=== PATIENT | female | born 1970 | race Caucasian/White ===

== ENCOUNTER → 2017-11-29 09:45 | Outpatient (CLI) | payer BC, SELFPAY ==
--- NOTE | 2017-11-29 09:54 | XR_ITS ---
XR hip LT 2-3V w/pelvis HISTORY: ITS.REASON: LOW BACK, LT HIP AND LT KNEE PAIN ORDERING PHYSICIAN: Arie Raya MD PATIENT AGE: 47 years COMPARISON: 10/16/2012 FINDINGS: No fracture or dislocation is evident. No significant degenerative change. No lytic or blastic change. Unremarkable soft tissues. Mild hypertrophic changes have developed along the greater trochanter on both sides slightly more extensive on the left of questionable clinical significance. IMPRESSION: 1. No acute finding. 2. Mild bony hypertrophic changes along the greater trochanters
--- NOTE | 2017-11-29 09:54 | XR_ITS ---
EXAM: XR lumbar spine min 4V HISTORY: ITS.REASON: LOW BACK, LT HIP AND LT KNEE PAIN ORDERING PHYSICIAN: Arie Raya MD PATIENT AGE: 47 years COMPARISON: None FINDINGS: Normal alignment. No fracture or dislocation. No lytic or blastic change. No significant degenerative change. The disc spaces are preserved. IMPRESSION: Negative lumbar spine
--- NOTE | 2017-11-29 09:54 | XR_ITS ---
XR knee LT 3V HISTORY: Left knee pain ITS.REASON: LOW BACK, LT HIP AND LT KNEE PAIN ORDERING PHYSICIAN: Arie Raya MD PATIENT AGE: 47 years COMPARISON: None FINDINGS: 3 views are obtained including AP, lateral, and sunrise view. No fracture or dislocation. No lytic or blastic change. Normal mineralization. There is mild patella although. No significant arthritic changes evident. No other significant findings IMPRESSION: Mild patella saray otherwise negative left knee
== END ==
PROVIDERS: PCP Family Medicine; Visit Provider Pain Medicine Interventional Pain Medicine
DX: M54.5 Low back pain (principal); M25.552 Pain in left hip; M25.562 Pain in left knee
CPT/HCPCS: 72110; 73502; 73562

== ENCOUNTER → 2020-12-21 15:06 | Outpatient (POV) | payer BC, SELFPAY | PROVIDERS: Visit Provider Dermatology | DX: Z00.00 Encounter for general adult medical examination without abnormal findings (principal) ==

== ENCOUNTER 2021-05-13 12:55 | Emergency (ER) | payer BC, SELFPAY ==
[2021-05-13 13:06] VITALS: BP 126/69; PULSE 93; RESP 18; TEMP 36.7; O2SAT 95; BMI 38.4
--- NOTE | 2021-05-13 13:36 | HMH.EDUTC ---
[facility] – [place] Disposition Clinical Impression: Bug bite Qualifiers: Encounter type: initial encounter Qualified Code(s): W57.XXXA - Bitten or stung by nonvenomous insect and other nonvenomous arthropods, initial encounter Disposition: Home, Self-Care Condition on Discharge: Good Instructions: How to Care for an Insect Bite or Sting, Insect Bites and Stings, DI for Insect Bites and Stings Additional Instructions: Use topical Steriod cream on area as prescribed Watch area for worsening of redness and swelling Return if needed Straight to ER if any life threatening symptoms Benadryl may help with itching Referrals: Wilmar Raya MD [Primary Care Provider] - As needed Time of Disposition: 14:09 Medical Decision Making - Matthew Inquiry Pt receiving controlled substance: No Matthew was queried for this patient: No Vital Signs: 05/13/21 13:06 05/13/21 13:59 Temperature 98.1 F 98 F Temperature Source Oral Pulse Rate 93 H Pulse Rate [Left] 93 H Respiratory Rate 18 18 Blood Pressure 126/69 Blood Pressure [Right Arm] 126/69 Blood Pressure Mean [Right Arm] 88 02 Sat by Pulse Oximetry 95 Orders (Tests/Meds): ED MEDICATIONS Discontinued Medications Generic Name Dose Route Start Last Admin Trade Name Freq PRN Reason Stop Dose Admin Methylprednisolone Sodium Succinate 125 mg 05/13/21 13:41 05/13/21 13:46 Methylprednisolone Sod Succ 125mg Vial IM 05/13/21 13:42 125 mg ONCE ONE Administration Medical Decision Narrative: Patient states that she has taken SoluMedrol in the past without reaction or complications Redness improved after injection [facility] [place] HPI - General Stated complaint: sore under chin Time Seen by Provider: 05/13/21 13:36 Mode of Arrival: Ambulatory Source of Information: Patient Limitations: No Limitations Description of Symptoms (Recalled from Triage Doc. by RN): pt thinks she has poison susan or a bug bite. she has a redened area under the R side of her chin. it appears similar to a mosquito bite but around that there is a red halo. she states it itches very badly. HEENT Symptoms (Recalled from RN notes): Yes Resp Symptoms (Recalled from RN notes): No Skin Symptoms (Recalled from RN notes): Yes (redened area under right side of chin) MS Symptoms (Recalled from RN notes): No Functional Status (Recalled from RN notes): na - History of Present Illness Provider Complaint: Patient states that she had a small itchy like area under the right side of her chin State that she scratched it and now it is red and appears like it is starting to spread State that at first she thought it may be poison susan but it has not continued to spread or a bug bite that she may have had a reaction too - Related Data Home Medications Medication Instructions Recorded Confirmed alprazolam 0.5 mg tablet PO 30 Days #120 tab 12/08/18 12/08/18 buspirone 30 mg tablet mg PO 60 Days #120 tab 12/08/18 12/08/18 conjugated estrogens 0.625 mg PO 90 Days #90 tab 12/08/18 12/08/18 tablet diclofenac sodium 75 mg PO 90 Days #90 tab 12/08/18 12/08/18 tablet,delayed release gabapentin 600 mg tablet PO 30 Days #90 tab 12/08/18 12/08/18 lamotrigine 150 mg tablet PO 30 Days #30 tab 12/08/18 12/08/18 lisinopril 10 mg tablet PO 30 Days #30 tab 12/08/18 12/08/18 oxycodone 10 mg tablet PO 30 Days #90 tab 12/08/18 12/08/18 pravastatin 20 mg tablet PO 90 Days #90 tab 12/08/18 12/08/18 tizanidine 2 mg tablet PO 22 Days #45 tab 12/08/18 12/08/18 vortioxetine 20 mg tablet 20 mg PO DAILY 12/08/18 12/08/18 vortioxetine 20 mg tablet PO 30 Days #30 tab 12/08/18 12/08/18 zolpidem 12.5 mg tablet,extended PO 30 Days #30 tab 12/08/18 12/08/18 release,multiphase Previous Rx's Medication Instructions Recorded amoxicillin 875 mg tablet 875 mg PO BID 10 Days #20 tab 12/08/18 fluticasone propionate 50 1 spray INTRANASAL DAILY #16 g 12/08/18 mcg/actuation nasal spray,suspension Allergies Allergy/AdvReac Type Severity Reaction
[2021-05-13 13:59] VITALS: BP 126/69; PULSE 93; RESP 18; TEMP 36.6
== END 2021-05-13 14:10 | disposition home or self-care (01) ==
PROVIDERS: Emergency Provider Nurse Practitioner; PCP Family Medicine
DX: S00.86XA Insect bite (nonvenomous) of other part of head, initial encounter (principal); W57.XXXA Bitten or stung by nonvenomous insect and other nonvenomous arthropods, initial encounter; F41.8 Other specified anxiety disorders; E78.5 Hyperlipidemia, unspecified; I10 Essential (primary) hypertension; Z79.899 Other long term (current) drug therapy
CPT/HCPCS: 96372; 99202; G0463

== ENCOUNTER → 2021-08-19 09:37 | Outpatient (CLI) | payer BC, SELFPAY ==
--- NOTE | 2021-08-19 09:40 | MR_ITS ---
PROCEDURE: MR KNEE LT WO CON CLINICAL INDICATION: INJURY TO LEFT KNEE Injury with pain and instability COMPARISON: CR [id number] XR knee LT 3V from 11/29/2017 TECHNIQUE: Routine multiplanar multi echo sequences are performed without gadolinium enhancement. FINDINGS: There is mild ill definition and thickening of the proximal aspect of the ACL which could represent a low-grade injury. No evidence of complete ACL tear. The PCL is intact. Collateral ligaments appear intact. The patellar tendon and quadriceps tendon are unremarkable. Moderate degree of motion artifact is present on the meniscal sagittal images. No definite evidence of meniscal tear. There is a small knee joint effusion. There is a small focal area of increased T2 signal involving the posterior aspect of the medial tibial plateau measuring approximately 6 mm. This is hypointense on T1 and hyperintense on T2 suggesting a small bone bruise. There are 2 cortical areas of altered signal intensity in the distal femur 1 which is medial and 5.6 cm proximal to the articular surface measuring 10 x 3 mm hypointense on T1 and T2 and hyperintense on the PD images. The other area is involving the distal femur in the retropatellar region measuring approximately 10 x 4 mm well-circumscribed with a peripheral area of decreased T1 and T2 signal and a central area of isointensity. These may be due to small fibrous cortical defect. Follow-up radiograph may confirm stability. IMPRESSION: 1. Ill definition with some thickening of the proximal aspect of the ACL which may represent a low-grade injury/partial tear/sprain. No evidence of complete ACL tear. 2. Small area of bone marrow edema involving the posterior aspect of the medial tibial plateau and may be due to small area of bone bruise. 3. Small knee joint effusion 4. Two cortical lesions of the distal femur which may be due to fibrous cortical defects. Consider 3 month radiographic follow-up to confirm stability Dictated by: Jordy Gan MD 08/22/2021 07:51 Jordy Gan MD in [place] 08/22/2021 07:51
[2021-08-19 10:02] LABS: Basophils # 0.1 K/mm3 (0-0.2); Eosinophils # 0.2 K/mm3 (0.0-0.4); Eosinophils % 2.4 % (0.1-12.0); Hematocrit 40.4 % (37.0-47.0); Hemoglobin 13.2 g/dL (12.2-16.2); Lymphocytes # 2.6 K/mm3 (0.7-4.5); Lymphocytes % 35.3 % (10-50); Mean Corpuscular HGB Conc 32.8 g/dL (31.8-35.4); Mean Corpuscular Hemoglobin 30.4 pg (27.0-31.2); Mean Corpuscular Volume 92.7 fl (81-99); Mean Platelet Volume 9.3 fl (7.4-10.4); Monocytes # 0.3 K/mm3 (0.1-1.0); Monocytes % 4.3 % (1.7-9.3); Neutrophils # 4.1 K/mm3 (1.8-7.8); Platelet Count 273 K/mm3 (142-424); Red Blood Count 4.35 M/mm3 (4.20-5.40); Red Cell Distribution Width 13.4 % (11.5-17.5); White Blood Count 7.3 K/mm3 (4.8-10.8)
[2021-08-19 10:38] LABS: Chloride 101 mmol/L (98-107); Potassium 4.7 mmoL/L (3.5-5.1); Sodium 144 mmol/L (136-145)
[2021-08-19 10:41] LABS: Alanine Aminotransferase 56 U/L (12-78); Albumin Level 4.8 g/dl (3.5-5.0); Albumin/Globulin Ratio 1.9 (1.1-1.8); Alkaline Phosphatase 60 U/L (38-126); Anion Gap 13.7 mEq/L (5-15); Aspartate Amino Transferase 52 U/L (14-36); Bilirubin,Total 0.6 mg/dl (0.2-1.3); Blood Urea Nitrogen 11 mg/dl (7-17); Calcium 10.1 mg/dl (8.4-10.2); Carbon Dioxide 34 mmol/L (22.0-30.0); Chol/HDL Ratio 3.9 (1-3.5); Cholesterol 293 mg/dl (140-200); Estimated Glomerular Filt Rate 76 ml/min (>60); GFR (African American) 92 ML/MIN (>60); Globulin 2.5 g/dL (1.3-3.2); Glucose 112 mg/dl (74-100); HDL Cholesterol 75 mg/dl (40-60); Total Protein,Serum 7.3 g/dl (6.3-8.2); Triglycerides 300 mg/dl (30-150); VLDL Cholesterol 60 mg/dL (0-40)
[2021-08-19 10:53] LABS: Direct LDL Cholesterol 189.28 mg/dL (100-129)
[2021-08-19 11:12] LABS: Thyroid Stimulating Hormone 1.16 uIU/mL (0.465-4.68)
== END ==
PROVIDERS: Nurse Practitioner Psychiatric/Mental Health; PCP Family Medicine; Visit Provider Nurse Practitioner Family
DX: S89.92XA Unspecified injury of left lower leg, initial encounter (principal); M25.362 Other instability, left knee; M25.562 Pain in left knee
CPT/HCPCS: 36415; 73721; 80053; 80061; 84443; 85025

== ENCOUNTER 2021-08-29 11:58 | Outpatient (RCR) | payer BC, SELFPAY | END 2021-08-29 12:20 | disposition home or self-care (01) | LOC: PT 11:58 | PROVIDERS: Visit Provider Nurse Practitioner Family | DX: S83.512D Sprain of anterior cruciate ligament of left knee, subsequent encounter (principal) | CPT/HCPCS: 97760 ==

== ENCOUNTER 2023-04-17 14:32 | Emergency (ER) | payer BC, SELFPAY ==
[2023-04-17 14:34] VITALS: BP 121/63; PULSE 112; RESP 17; TEMP 36.9; O2SAT 95; BMI 37.3
--- NOTE | 2023-04-17 14:53 | HMH.EDALLER ---
Discharge Plan Disposition Patient Disposition: Home, Self-Care Prescriptions Prescriptions: New doxycycline hyclate 100 mg capsule 100 mg PO BID 14 Days Qty: 28 0RF No Action quetiapine 25 mg tablet 25 mg PO BID Patient Comments: TAKE 1 TABLET BY MOUTH TWICE DAILY quetiapine 200 mg tablet 200 mg PO HS Patient Comments: TAKE 1 TABLET BY MOUTH AT BEDTIME buspirone 30 mg tablet 30 mg PO BID Patient Comments: TAKE 1 TABLET BY MOUTH TWICE DAILY lisinopril 10 mg tablet 10 mg PO DAILY Patient Comments: TAKE 1 TABLET BY MOUTH ONCE DAILY omeprazole 20 mg capsule,delayed release(DR/EC) 20 mg PO BID Patient Comments: TAKE 1 CAPSULE BY MOUTH TWICE DAILY diclofenac sodium 75 mg tablet,delayed release (DR/EC) 75 mg PO DAILY Patient Comments: TAKE 1 TABLET BY MOUTH ONCE DAILY pravastatin 20 mg tablet 20 mg PO DAILY Patient Comments: TAKE 1 TABLET BY MOUTH ONCE DAILY hydroxyzine pamoate 25 mg capsule 25 mg PO Q8HP PRN (Reason: Anxiety) Patient Comments: TAKE 1 CAPSULE BY MOUTH EVERY 8 HOURS NEEDED zolpidem 12.5 mg tablet,ext release multiphase 12.5 mg PO HSP PRN (Reason: Insomnia) Patient Comments: TAKE 1 TABLET BY MOUTH ONCE DAILY AT BEDTIME NEEDED FOR 30 DAYS Trintellix 20 mg tablet 20 mg PO DAILY Referrals Follow up/Referrals: Wilmar Raya MD [Primary Care Provider] - See instructions Clinical Impressions Clinical Impression: Acute Lyme disease Tick bite Qualifiers: Encounter type: initial encounter Site of tick bite: thigh Laterality: left Qualified Code(s): S70.362A - Insect bite (nonvenomous), left thigh, initial encounter Instructions Patient Instructions: Lyme Disease Test, DI for Lyme Disease Discharge ED Provider: Karl Rojo Allergic React/Insect Bite HPI General Chief complaint: Allergic Reaction Stated complaint: Headache, rash, dizzy, fatigue Time Seen by Provider: 04/17/23 14:35 Mode of Arrival - ED Triage: Ambulatory Source of Information: Patient Limitations: No Limitations History of Present Illness HPI narrative: This is a 52-year-old female who is stated that she was bit by a tick approximately 3 days ago on her left lateral thigh has now developed headache nausea and lightheadedness. Patient denies chest pain pressure cough hemoptysis shortness of breath fevers or chills. Patient denies any nasal congestion or sore throat. Allergies Allergy/AdvReac Type Severity Reaction Status Date / Time No Known Allergies Allergy Unknown Uncoded 12/08/18 10:29 Related Data Home Medications Medication Instructions Recorded Confirmed buspirone 30 mg tablet 30 mg PO BID Depression 04/17/23 04/17/23 diclofenac sodium 75 mg 75 mg PO DAILY Pain 04/17/23 04/17/23 tablet,delayed release hydroxyzine pamoate 25 mg capsule 25 mg PO Q8HP PRN Anxiety 04/17/23 04/17/23 lisinopril 10 mg tablet 10 mg PO DAILY High Blood Pressure 04/17/23 04/17/23 omeprazole 20 mg capsule,delayed 20 mg PO BID Acid Reflux 04/17/23 04/17/23 release pravastatin 20 mg tablet 20 mg PO DAILY Cholesterol 04/17/23 04/17/23 quetiapine 200 mg tablet 200 mg PO HS Psych 04/17/23 04/17/23 quetiapine 25 mg tablet 25 mg PO BID Psych 04/17/23 04/17/23 vortioxetine 20 mg tablet 20 mg PO DAILY Depression 04/17/23 04/17/23 (Trintellix) zolpidem 12.5 mg tablet,extended 12.5 mg PO HSP PRN Insomnia 04/17/23 04/17/23 release,multiphase Previous Rx's Medication Instructions Recorded doxycycline hyclate 100 mg capsule 100 mg PO BID 14 days #28 caps 04/17/23 [facility] Disclaimer: The information contained in this section may have been updated after the patient was seen, as this information can be updated by other users. Medical History (Updated 04/17/23 @ 16:35 by Karl Rojo MD) Anxiety Arthritis Depression Hiatal hernia with GERD without esophagitis High cholesterol HTN (hypertensi
[2023-04-17 15:08] VITALS: BP 101/52; PULSE 98; RESP 20; O2SAT 96
[2023-04-17 15:30] VITALS: BP 105/62; PULSE 94; O2SAT 95
[2023-04-17 15:30] LABS: Coronavirus 19, PCR Not Detected (NotDetected); Influenza A, PCR Not Detected (NotDetected); Influenza B, PCR Not Detected (NotDetected)
[2023-04-17 16:00] VITALS: BP 107/69; PULSE 97; O2SAT 97
--- NOTE | 2023-04-17 16:13 | PC.NURSE ---
Patient states she feels much better, but still feels a little dizzy. Attending notified. No new orders at this time. Still awaiting COVID/Flu swab
[2023-04-17 16:36] VITALS: BP 118/68; PULSE 86; RESP 16; TEMP 36.9; O2SAT 98
[2023-04-20 14:28] LABS: Lyme B. burgdorferi PCR Blood Negative (Negative)
== END 2023-04-17 16:41 | disposition home or self-care (01) ==
PROVIDERS: Emergency Provider Emergency Medicine; PCP Family Medicine
DX: A69.20 Lyme disease, unspecified (principal); S70.362A Insect bite (nonvenomous), left thigh, initial encounter; R51.9 Headache, unspecified; F41.9 Anxiety disorder, unspecified; F32.A Depression, unspecified; I10 Essential (primary) hypertension; E78.00 Pure hypercholesterolemia, unspecified
CPT/HCPCS: 87476; 87636; 96361; 96374; 96375; 99284; J2405

== ENCOUNTER 2025-08-19 10:25 | Emergency (ER) | payer BC, SELFPAY ==
--- NOTE | 2025-08-19 10:33 | XR_ITS ---
FINAL REPORT CLINICAL HISTORY: pain Rt thumb FINDINGS: AP, lateral and oblique views of the right hand were obtained. There is no prior exam for comparison. There is no acute fracture or dislocation. There is an old ulnar styloid process fracture or unfused secondary ossicle. There is mild degenerative joint disease. The soft tissues are normal. IMPRESSION: Degenerative and chronic appearing findings. Reviewed, Interpreted and Dictated by Stacie Cedeño MD Transcribed by Milvia Kerns Authenticated and [facility]
--- NOTE | 2025-08-19 10:33 | XR_ITS ---
FINAL REPORT CLINICAL HISTORY: short of breath FINDINGS: A portable view of the chest was obtained. Cardiac and mediastinal silhouettes are within normal limits. The lungs are clear. There is no pleural effusion or pneumothorax. IMPRESSION: No acute process on this portable exam. Reviewed, Interpreted and Dictated by Stacie Cedeño MD Transcribed by Milvia Kerns Authenticated and [facility]
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
[2025-08-19 10:34] VITALS: BP 138/97; PULSE 94; RESP 15; TEMP 37.1; O2SAT 99; BMI 31.1
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
--- NOTE | 2025-08-19 10:40 | ECG_ITS ---
APPROVED REPORT Exam: Resting ECG HR:89 bpm ECG Measurements Heart Rate 89 AXES AL 156 P 64 QRSd 96 QRS -4 QT 364 T 78 QTc 411 Conclusion SINUS RHYTHM LOW QRS VOLTAGE IN PRECORDIAL LEADS [QRS DEFLECTION < 1.0 mV IN CHEST LEADS] BORDERLINE ECG Electronically signed by : SOLO HERNANDEZ, 08/24/2025 07:13:42
--- NOTE | 2025-08-19 10:44 | PC.NURSE ---
patient gone to CT at this time.
[2025-08-19] MEDS: KETOROLAC 60MG/2ML VIAL 60 MG IM (11:08)
[2025-08-19] MEDS: OXYCODONE 10MG EXTENDED RELEASE TAB.ER.12H 10 MG PO (11:08)
[2025-08-19] MEDS: ONDANSETRON 4MG ODT 4 MG SL (11:08)
[2025-08-19 11:16] LABS: Hematocrit 39.8 % (37.0-47.0); Hemoglobin 13.3 g/dL (12.2-16.2); Immature Granulocytes % 0.4 %; Mean Corpuscular HGB Conc 33.4 g/dL (31.8-35.4); Mean Corpuscular Hemoglobin 29.4 pg (27.0-31.2); Mean Corpuscular Volume 87.9 fl (81-99); Nucleated Red Blood Cells % 0 %; Platelet Count 192 K/mm3 (142-424); Red Blood Count 4.53 M/mm3 (4.20-5.40); Red Cell Distribution Width-SD 38.5 fL; White Blood Count 4.9 K/mm3 (4.8-10.8)
[2025-08-19 11:21] LABS: Alanine Aminotransferase 30 U/L (12-78); Albumin Level 5.0 g/dl (3.5-5.0); Albumin/Globulin Ratio 1.6 (1.1-1.8); Alkaline Phosphatase 79 U/L (38-126); Anion Gap 10.2 mEq/L (5-15); Aspartate Amino Transferase 38 U/L (14-36); Bilirubin,Total 0.7 mg/dl (0.2-1.3); Blood Urea Nitrogen 9 mg/dl (7-17); Calcium 9.6 mg/dl (8.4-10.2); Carbon Dioxide 29 mmol/L (22.0-30.0); Chloride 102 mmol/L (98-107); Creatinine Clearance Estimated 88 mL/min (50-200); Creatinine,Serum 0.90 mg/dl (0.52-1.04); Estimated Glomerular Filt Rate 65 ml/min (>60); GFR (African American) 79 ML/MIN (>60); Globulin 3.1 g/dL (1.3-3.2); Glucose 105 mg/dl (74-100); Lipase 386 U/L (23-300); Magnesium 2.0 mg/dl (1.6-2.3); Potassium 4.2 mmoL/L (3.5-5.1); Sodium 137 mmol/L (136-145); Total Protein,Serum 8.1 g/dl (6.3-8.2)
[2025-08-19 11:49] LABS: Troponin I < 0.01 ng/ml (0.00-0.034)
[2025-08-19 12:47] VITALS: BP 150/70; PULSE 77; RESP 15; TEMP 36.9; O2SAT 99
== END 2025-08-19 12:47 | disposition home or self-care (01) ==
PROVIDERS: Nurse Practitioner; Emergency Provider Student in an Organized Health Care Education/Training Program; PCP Family Medicine
DX: M79.644 Pain in right finger(s) (principal); S39.012A Strain of muscle, fascia and tendon of lower back, initial encounter; V49.40XA Driver injured in collision with unspecified motor vehicles in traffic accident, initial encounter
CPT/HCPCS: 71045; 72131; 73130; 80053; 83690; 83735; 84484; 85025; 93005; 96372; 99285; J1885; Q0162

== ENCOUNTER 2025-09-04 16:17 | Outpatient (CLI) | payer OTHER, BC, SELFPAY ==
--- OUTSIDE RECORDS SUMMARY | 2025-09-04 16:21 | XMS_ITS | Clinical Summary ---
Author Organization [facility] Address [address] [place] [address] Care Team Providers Care Director Of Brand Marketing Name Role Phone Unavailable Primary Care Provider Unavailabl e Social History Tobacco Use Types Packs/Day Years Used Date Smoking Tobacco: Never Assessed Abuse Screen Answer Date Recorded Unsafe at Home or Work/School Not on file Feels Threatened by Someone? Not on file 07/2023 Does Anyone Keep You from Co ntacting Others or Doint Things Outside the Home? Not on file 07/24/2023 Physical Sign of Abuse Present Not on file 1 Housing Stability Answer Date Recorded Current Living Arrangements Not on file 07/15 Potentially Unsafe Housing Conditions Not on aman e 07/24/2023 Family and Community Support Answer Héctor e Recorded Help with Day-to-Day Activities Not on file 07/24/2023 Lonely or Isolated Not on file 07/24/2023 Employment Answer Date Recorded Do you want help finding or keeping work or a micah b? Not on file 07/24/2023 Disabilities Answer Date Recorded Concentrating, Remembering, or Making Decisions Difficulty Not on file 07/24/2023 Doing Errands Independently Difficulty Not on fi le 07/24/2023 Education Answer Date Recorded Help with school or training? Not on file Preferred Language Not on file 07/24/2023 Comments Unknown Sex and Gender Information Value Date Recorded Sex Assigned at Not on file Legal Sex Female 1:43 PM EDT Gender Identity Not on file Sexual Orientation Not on file Plan of Treatment Health Maintenance Due Date Last Done Comments ANNUAL PHYSICAL 1971 Annual Gynecologic Pelvic and Breast Exam 1971 HEPATITIS C SCREENING 1971 TDAP/TD VACCINES (1 - Tdap) 1990 MAMMOGRAM 2011 COLOGUARD 2016 COLON CANCER SCREENING 5 YEAR SIGMOIDOSCOPY 2016 COLONOSCOPY [address] CANCER SCREENING [address] COLONOGRAPHY 2016 FECAL OCCULT BLOOD TEST 2016 FIT Testing (1 year) 2016 Pneumococcal Vaccine 50+ (1 of 1 - PCV) 2021 ZOSTER VACCINE (1 of 2) 2021 INFLUENZA VACCINE 05/15/2025
--- OUTSIDE RECORDS SUMMARY | 2025-09-04 16:21 | XMS_ITS | Clinical Summary ---
Author Organization [facility] Address [address] [place] [address] Phone Care Team Providers Care Fixed Interest Dealer Name Role Phone West Raya MD Primary Care Provider [phone] Social History Tobacco Use Types Packs/Day Years Used Date Smoking Tobacco: Never Assessed Comments Unknown Sex and Gender Information Value Date Recorded Sex Assigned at Not on file Legal Sex Female 3:08 AM EDT Gender Identity Not on file Sexual Orientation Not on file Plan of Treatment Health Maintenance Due Date Last Done Comments Annual Wellness Exam 1974 DTaP/TDaP/Td (1 - Tdap) 1990 Hepatitis B Vaccine (1 of 3 - 19+ 3-dose series) 1990 Cologuard 2016 Colon Cancer Screening 2016 Colonoscopy 2016 FIT 2016 Sigmoidoscopy 2016 Virtual Colonography 2016 Pneumococcal Vaccine 50+ (1 of 1 - PCV) 2021 Zoster (1 of 2) 2021 COVID-19 Vaccine (1 - 2024-2 6 season) 2025 Influenza Vaccine (#1) 2025 Meningococcal B Vaccine Aged Out No l onger eligible based on patient's age to complete this topic Care Teams Fixed Interest Dealer Relationship Specialty Start Date End Date West Raya MD [address] [place] [id number] PCP - General Family Medicine 07/03/13
--- OUTSIDE RECORDS SUMMARY | 2025-09-04 16:21 | XMS_ITS | Data Portability ---
Author Organization [facility] - Stu adkins MD, Main Office Address [address] [place] [address], [facility] [address] [place] [address] Assessment No assessment recorded. Plan of Treatment Reminders Order Date Submit Date Provider Last Modified By Organization Details Last Modified Time Details Appointments None record ed. Lab None record ed. Referral None record ed. Procedures None record ed. Surgeries None record ed. Imaging None record ed. Medication Orders None record ed. Patient TargetsNo targets recorded. Patient Instructions Encounter Date Encounter Id Patient Instructions Last Modified By Organization Details Last Modified Time 12/03/2018 [id number] Carpal Tunnel Syndrome: Care Instructions [email or web address] Not available 12/03/2018 14:38:34 Reason for Referral None Reported. Results Created Date Observation Date Name Description Value Unit Range Abnormal Flag Note LastModifiedBy Organization Detail LastModifiedTime 12/03/19 19 12/03/2018 elect romyo gram + nerve condu ction study No observ ation record ed. BARCODE Not Available 2018 13:03:24 Result Notes None recorded. Problems No Known Problems Procedures Surgical History Date Name Laterality Status Provider Name and Address Organization Details Recorded Time 12/03/2018 NCV/EMG completed Can Carolina MD 12/03/2018 12:53:24 Imaging Results None recorded. Procedure Notes None recorded. Medical Equipment None Reported. Allergies No known drug allergies Medications Name Sig Start Date Stop Date Status Note LastModified by Organization Details LastModified Time buspirone 5 mg tablet active Not Available Not Available Not Available lamotrigine 150 mg tablet active Not Available Not Available Not Available doxepin 50 mg capsule active Not Available Not Available Not Available gabapentin 600 mg tablet active Not Available Not Available Not Available tizanidine 2 mg tablet active Not Available Not Available Not Available fluconazole 150 mg tablet active Not Available Not Available Not Available prednisone 20 mg tablet active Not Available Not Available Not Available ciprofloxacin 500 mg tablet active Not Available Not Available No t Available sulfamethoxazole 800 mg-trimethoprim 160 mg tablet active Not Available Not Availabl e Not Available oxycodone-acetamin ophen 5 mg-325 mg tablet active Not Available Not Available Not Available alprazolam 0.5 mg tablet active Not Available Not Available Not Available trazodone 100 mg tablet active Not Available Not Available Not Available buspirone 30 mg tablet active Not Available Not Available Not Available buspirone 10 mg tablet active Not Available Not Available Not Available lisinopril 10 mg tablet active Not Available Not Available Not Available omeprazole 20 mg capsule,delayed release active Not Available Not Available Not Available diclofenac sodium 75 mg tablet,delayed release active Not Available Not Available Not Available pravastatin 20 mg tablet active Not Available Not Available Not Available ibuprofen 600 mg tablet active Not Available Not Available Not Available cefdinir 300 mg capsule active Not Available Not Available Not Available fluoxetine 20 mg capsule active Not Available Not Available Not Available lamotrigine 100 mg tablet active Not Available Not Available Not Available buspirone 15 mg tablet active Not Available Not Available Not Available Premarin 0.625 mg/gram vaginal cream active Not Available Not Available Not Available Premarin 0.625 mg tablet active Not Available Not Available Not Available nitrofurantoin monohydrate/macroc rystals 100 mg capsule active Not Available Not Available Not Available zolpidem ER 12.5 mg tablet,extended release,multiphase active Not Available Not Divya ilable Not Available ProAir HFA 90 mcg/actuation aerosol inhaler active Not Available Not Availa ble Not Available oxycodone 10 mg tablet active Not Available Not Available Not Available Narcan 4 mg/actuation nasal spray active Not Available Not Available Not Available Vraylar 1.5 mg capsule active Not Available Not Available Not Available Trintellix 10 mg tablet active Not Available Not Available Not Available Trintellix 20 mg tablet active Not Available Not Available Not Available Vitals None Recorded Social History None recorded. Functional Status None recorded. Mental Status None recorded. Family History Nothing Reported. Medical History No medical history recorded. Gynecological HistoryNo gynecological history recorded. Obstetrics History GPAL:G 0 P 0 0 0 0 Past Encounters Encounter ID Performer Location Encounter Start Date Encounter Closed Date Diagnosis/Indication Diagnosis SNOMED-CT Code Diagnosis ICD10 Code Diagnosis IMO Codes Diagnosis Note [id number] Stu Carolina MD Main Office [address], [place] [address] [place] [address] 12/03/2018 12:20:18 12/03/2018 12:55:54 Bilateral carpal tunnel syndrome [id number] G56.03 Mild bilateral CTS. Health Concerns Section Related Observation LastModified by Organization Detai ls LastModified Time None Recorded Concern Status LastModified by Organization Details LastModified Time None Recorded Advance Directives Directive None Recorded Payers Insurance Date Sequence Insurance Name Policy Number Policy Jo Covered Member ID Jo Member ID Guarantor Name 11/26/2018 TEE Duarte OBGyn Episode No OBEpisode recorded.
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
== END 2025-09-04 23:59 | disposition home or self-care (01) ==
LOC: RAD 16:20
PROVIDERS: PCP Family Medicine; Visit Provider Physician Assistant
DX: S62.234A Other nondisplaced fracture of base of first metacarpal bone, right hand, initial encounter for closed fracture (principal); S53.31XA Traumatic rupture of right ulnar collateral ligament, initial encounter; V89.2XXA Person injured in unspecified motor-vehicle accident, traffic, initial encounter
CPT/HCPCS: 73218

== ENCOUNTER 2025-09-29 09:42 | Outpatient (CLI) | payer OTHER, BC, SELFPAY ==
--- NOTE | 2025-09-29 09:43 | XR_ITS ---
FINAL REPORT CLINICAL HISTORY: fx of metacarpal base COMPARISON: None FINDINGS: AP, lateral and oblique views of the right hand were obtained. There is a fracture of the base of the first metacarpal. Minimal callus is noted around the fracture line. The joint spaces are preserved. The soft tissues are normal. IMPRESSION: Fracture of the base of the first metacarpal, with minimal callus formation about the fracture line. Reviewed, Interpreted and Dictated by Stacie Cedeño MD Transcribed by Myrna Ovalles Authenticated and [facility]
--- OUTSIDE RECORDS SUMMARY | 2025-09-29 09:53 | XMS_ITS | Clinical Summary ---
Author Organization [facility] Address [address] [place] [address] Care Team Providers Care Landscape Laborer Name Role Phone Unavailable Primary Care Provider [...]
--- OUTSIDE RECORDS SUMMARY | 2025-09-29 09:53 | XMS_ITS ---
Author Organization Unknown ENCOUNTERS Encounter Performer Location Date Diagnosis Diagnosis Status Emergency [facility] [address] [place] [address] [id number] [facility] Pre Admit [facility] [address] [place] [address] [id number] Emergency Karl Rojo [place] [address] [place] [id number] [facility] Emergency Cinthya Westfall [facility] [place] [address] [place] [address] [id number] [facility] *Note: Encounters from your own facility or health system may be excluded. Allergies, Adverse Reactions, Alerts Allergen Type Severity Identification Date Medications Name Date Quantity Days Supplied GPI Number
--- OUTSIDE RECORDS SUMMARY | 2025-09-29 09:53 | XMS_ITS | Clinical Summary ---
Author Organization [facility] Address [address] [place] [address] Phone Care Team Providers Care Review Scheduling Coordinator Name Role Phone West Raya MD Primary Care Provider [phone] Social History Tobacco Use Types Packs/Day Years [...] age to complete this topic Care Teams Review Scheduling Coordinator Relationship Specialty Start Date End Date West Raya MD [address] [place] [id number] PCP - General Family Medicine 07/03/13
== END 2025-09-29 23:59 ==
LOC: RAD 09:43
PROVIDERS: PCP Family Medicine; Visit Provider Physician Assistant
DX: S62.234D Other nondisplaced fracture of base of first metacarpal bone, right hand, subsequent encounter for fracture with routine healing (principal); X58.XXXD Exposure to other specified factors, subsequent encounter
CPT/HCPCS: 73130